=== PATIENT | male | born 1990 | race Caucasian/White ===

== ENCOUNTER → 2021-09-22 08:38 | Outpatient (CLI) | payer BC, SELFPAY ==
--- NOTE | 2021-09-22 08:41 | DI.MRI.S_ITS ---
PROCEDURE: MR LUMBAR SPINE WO CON INDICATIONS: progressing chronic low back pain s/p sports injury years ago TECHNIQUE: Noncontrast sagittal T1 spin echo and T2 fast echo, sagittal STIR, and T2 fast spin echo through the lumbar spine. Additional oblique axial T2 weighted images were performed through L4-L5 and L5-S1. COMPARISON: [facility] ([facility]), CR, XR LUMBAR SPINE 2-3V, 09/04/2021, 15:17. FINDINGS: Image quality: Diagnostic. Alignment and Curvature: Mild dextroconvex scoliotic curvature is seen. Bone Marrow: Marrow is of normal overall signal. No acute vertebral body compression fractures. Spinal Cord: Conus medullaris terminates at the L1 level. Visualized cord demonstrates normal signal and size. Paraspinous Soft Tissues: No paravertebral masses. T12-L1: Normal appearance. L1-L2: Mild loss of disc height is seen. Loss of disc signal is seen. Mild disc bulge is seen, with a mild central disc protrusion. No significant neural foraminal or central canal narrowing can be seen. L2-L3: Normal appearance. L3-L4: Minimal loss of disc height is seen. Loss of disc signal can be seen. Mild to moderate disc bulge is seen, with a mild central disc protrusion. Mild facet joint hypertrophy is seen. There is moderate to severe right-sided and at least moderate left-sided neural foraminal narrowing. There is a degree of compression seen upon the exiting nerve roots. Moderate central canal narrowing is seen. L4-L5: The disc height is well-preserved. The disc signal is relatively well preserved. Mild generalized disc bulge is seen. Mild facet joint hypertrophy is seen. Moderate bilateral neural foraminal narrowing can be seen, right worse than left. Mild central canal narrowing is seen. L5-S1: The disc height and disk signal are well-preserved. Mild disc bulge is seen, which is slightly eccentric to the left. Mild facet joint hypertrophy is seen. There is at least moderate bilateral neural foraminal narrowing seen. Minimal compression can be seen upon the exiting L5 nerve roots. Mild central canal narrowing is seen. IMPRESSION: Multiple levels of lumbar spine degenerative change are seen, which are overall worst at L3-L4 and L5-S1. Dictated by: Jatinder Carrasco M.D. on 09/22/2021 at 9:55 Approved by: Jatinder Carrasco M.D. on 09/22/2021 at 9:59
== END ==
PROVIDERS: PCP Physician Assistant; Referring Provider Physician Assistant; Visit Provider Physician Assistant
DX: M47.816 Spondylosis without myelopathy or radiculopathy, lumbar region (principal); M47.817 Spondylosis without myelopathy or radiculopathy, lumbosacral region; M54.9 Dorsalgia, unspecified; G89.29 Other chronic pain
CPT/HCPCS: 72148